=== PATIENT | male | born 1930 | race Caucasian/White ===

== ENCOUNTER 2016-03-17 09:05 | Outpatient (CLI) | payer MEDICARE ==
--- NOTE | 2016-03-17 16:31 | RAD ---
CHEST 2 VIEWS: Date: 03/17/16 FINDINGS: COPD is present as usual with flattening of the diaphragm. The lungs are clear. There is no sign of pneumonia, pleural effusion, or pneumothorax. Should there be a concern of rib fracture, dedicated r ib films around area obtained could be needed. The mediastinum appears normal. Degenerative changes are seen in the spine. IMPRESSION: COPD but no acute findings. POS: HOME
== END 2016-03-17 09:06 | disposition home or self-care (01) ==
LOC: BURRAD 09:05
PROVIDERS: ATTEND Family Medicine
DX: R07.89 Other chest pain (principal); J44.9 Chronic obstructive pulmonary disease, unspecified
CPT/HCPCS: 71020

== ENCOUNTER 2016-05-13 14:04 | Inpatient (IN) | payer MEDICARE ==
[2016-05-13] MEDS ORDERED: methylPREDNISolone Sod Succ/PF 125 MG/2 ML VIAL ONE (14:29)
[2016-05-13 15:04] LABS: ALT (SGPT) 45 U/L (0-55); AST (SGOT) 50 U/L (5-34); Albumin 4.1 g/dL (3.4-4.8); Alkaline Phosphatase 68 U/L (40-150); Anion Gap 14 mmol/L (10-20); BUN (Urea Nitrogen) 10 mg/dL (8.4-25.7); Bilirubin, Total 1.6 mg/dL (0.2-1.2); Calc. Creatinine Clearance 0 mL/min (70-130); Calcium 8.7 mg/dL (7.8-10.44); Carbon Dioxide 24 mmol/L (23-31); Chloride 97 mmol/L (98-107); Estimated GFR-MDRD Greater than 90; Glucose 106 mg/dL (83-110); Potassium 3.9 mmol/L (3.5-5.1); Protein, Total 7.1 g/dL (5.8-8.1); Sodium 131 mmol/L (136-145)
[2016-05-13 15:08] LABS: Actual Bicarbonate (HCO3v) 26 mEq/L (24-30); Base Excess 1.9 mEq/L (-2 - +2)
[2016-05-13 15:09] LABS: Hemoglobin (Hb) 14.2 g/dL (12.6-17.4)
[2016-05-13 15:14] LABS: Band 3 % (5-11); Hemoglobin 14.4 g/dL (14.0-18.0); Large Platelets SLIGHT; Lymphocytes 22 % (21-51); MDiff Complete? YES; Mean Corpuscular HGB CONC 33.7 g/dL (32.0-36.0); Mean Corpuscular Hemoglobin 28.9 pg (27.0-31.0); Mean Corpuscular Volume 85.8 fl (80.0-94.0); Mean Platelet Volume 7.7 fL (7.4-10.4); Monocytes 13 % (0-10); Neutrophil 57 % (42-75); Platelet Count 131 thou/uL (130-400); RBC Distribution Width 11.4 % (11.5-14.5); Reactive Lymphocytes 4 % (0-10); Red Blood Cell (RBC) Count 4.98 mill/uL (4.70-6.10); White Blood Cell (WBC) Count 4.9 thou/uL (4.8-10.8)
--- NOTE | 2016-05-13 18:37 | RAD ---
CHEST 2 VIEWS: Date: 05/13/16 Comparison is made with the prior study of 03/17/16. There is blunting of the right costophrenic angle which is new indicating some pleural fluid is pres ent. There is a little increased streaking in the right lower lobe, so I cannot exclude an early inf iltrate here. The left lung is relatively clear. COPD is suggested. The heart size is normal. The tr achea is midline. IMPRESSION: 1. COPD. 2. Small right pleural effusion and suggestion of early right lower lobe infiltrate. Correlate with clinical exam. CODE T. POS: HOME
[2016-05-13] MEDS ORDERED: Oseltamivir 75 MG CAP ONE (20:26)
[2016-05-13] MEDS: Mometasone/Formoterol 60 PUFF AER INH SCH (20:57)
[2016-05-13] MEDS: PROVENTIL INHALER 6.7 G (200 INHALATIONS) INH SCH (21:00)
[2016-05-13] MEDS ORDERED: CINNAMON BARK PO SCH (21:00)
[2016-05-13] MEDS: Oseltamivir 75 MG CAP PO SCH (21:02)
[2016-05-13] MEDS: Carvedilol 12.5 MG TAB PO SCH (21:02)
[2016-05-13] MEDS: Pregabalin 75 MG CAP PO SCH (21:02)
[2016-05-14] MEDS: PROVENTIL INHALER 6.7 G (200 INHALATIONS) INH SCH ×6 (00:17→19:14)
--- NOTE | 2016-05-14 02:28 | HP ---
DATE OF ADMISSION: 05/13/2016 CHIEF COMPLAINT: Dyspnea. HISTORY OF PRESENT ILLNESS: An 86-year-old male who presented to [facility] after 3-4 day course of worsening upper respiratory symptoms, generalized fatigue and poor appetite. A subsequent evaluation in the emergency department revealed, patient to be hypoxic on room air. He was supplied nebulized treatments with minimal improvement and insufficient to be able to return home. He is also physically deconditioned secondary to his ongoing symptoms. Evaluation for flu ended up being positive for flu A. The patient did not receive a full shot this season and does not routinely receive them stating he used to get the flu regardless of whether or not he obtained a flu shot. He does have a noted history of asthma for which he is on Breo and p.r.n. inhaler. It was decided to admit the patient in order to treat his viral URI along with supplementation of oxygen until he is able to sufficiently oxygenate well enough on room air to return home. PAST MEDICAL HISTORY: Includes hyperlipidemia, asthma, shingles, and hypertension. PAST SURGICAL HISTORY: 1. Prior cardiac stents in 2008 2. Tonsillectomy. 3. Prostate surgery on nose in 2011; left eye surgery in 2013; right eye surgery in 2013, oral surgery in 2014. SOCIAL HISTORY: He is a nonsmoker and lives alone. FAMILY HISTORY: Patient has a brother. No childrens, never been . ALLERGIES: He has no known drug allergies. CURRENT MEDICATIONS: Takes [place] 3 1000 mg daily, Crestor 20 mg daily, folic acid 150 mg as directed, resveratrol 250 mg as directed, quercetin 250 mg, cinnamon 350 mg 4 pills a day with a decrease by one pill a day every three days until it is 10 mg, CoQ10 250 mg capsule, aspirin 81 mg daily, niacin 500 mg p.o. daily, magnesium 500 mg p.o. daily, Flonase daily, vitamin B12 1000 mcg p.o. daily, albuterol inhaler 2 puffs q.4 hours p.r.n, Breo Ellipta 100/25 mcg for inhalation once a day, lisinopril 20 mg p.o. daily, ProAir 12.5 mg p.o. b.i.d., Lyrica 150 mg p.o. t.i.d.. Patient also takes a compound topical medications applied to his side of shingles b.i.d. REVIEW OF SYSTEMS: GENERAL: The patient is fatigue, denies fever. EAR, NOSE, AND THROAT: Denies sore throat, does have nasal drainage. CARDIOVASCULAR: Denies chest pain or palpitations. RESPIRATORY: Reports mild dyspnea. No active cough. GASTROINTESTINAL: Denies abdominal pain, nausea, vomiting, diarrhea, or constipation. Does have a decreased appetite. GENITOURINARY: Denies dysuria. MUSCULOSKELETAL: Denies joint swelling. DERMATOLOGIC: He does have a shingles, rash to his back. NEURO: Denies headache. LABORATORY DATA: White blood cell count 4.9, H and H is 14.4 and 42.7. Sodium is 131, potassium 3.9. GFR was greater than 90, glucose is 106. Chest x-ray official read is pending. PHYSICAL EXAMINATION: VITAL SIGNS: Temperature is 97.8, pulse of 67, respiratory rate is 20, oxygen is 96% on 2 liters, blood pressure is 211/93 and likely influence from his nebulized treatment. GENERAL: He is elderly alert and oriented to person, place, time, and situation , in no acute distress. FACE: No asymmetry. EYES: Conjunctivae are clear. Extraocular muscles are intact bilaterally with no discharge. HEAD, EYES, EARS, NOSE, AND THROAT: Moist mucous membranes. Otherwise, within normal limits. NECK: Supple, full range of motion. No lymphadenopathy, no meningeal signs. CARDIOVASCULAR: Regular rate, normal S1, S2, no murmurs. RESPIRATORY: No wheezing, but does sound tight. There is no crackles or rhonchi. GASTROINTESTINAL: Soft, nontender to palpation, no masses. EXTREMITIES: Warm and well perfused with no clubbing, cyanosis or edema. SKIN: He has a healing erythematous rash to the T4 distribution on the left side of the back. NEUROLOGIC: Nonfocal. He does have some generalized weakness. Cranial nerves II-XII intact. ASSESSMENT AND PLAN: 1. Hypoxia. We will supplement oxygen to keep saturation greater than 92% with plan to wean accordingly, DuoNeb q.6 hours scheduled. 2. Flu A positive, we will treat with oseltamivir 75 mg p.o. b.i.d. x5 days. 3. Shingles, we will continue Lyrica. The patient may bring his topical compound ointment to be applied to his rash b.i.d. 4. Asthma. We will continue home Breo and inhaler p.r.n. 5. Hyperlipidemia. We will continue on statin. 6. Hypertension. We will continue home BP medication and follow vital signs. 7. Physical deconditioning. We will seek PT, OT eval. 8. Prophylaxis. We will provide Lovenox prophylactic dose along with a PPI, with Protonix. MTDD
[2016-05-14] MEDS: Mometasone/Formoterol 60 PUFF AER INH SCH ×2 (06:24→19:09)
[2016-05-14] MEDS ORDERED: Non-Formulary Item 1 EACH (Fluticasone/Vilanterol [Breo Ellipta] 1 INH) IH SCH (09:00)
[2016-05-14] MEDS ORDERED: ALPHA LIPOIC ACID PO SCH (09:00)
[2016-05-14] MEDS: Pregabalin 75 MG CAP PO SCH ×3 (09:00→21:09)
[2016-05-14] MEDS ORDERED: RESVERATROL 250 MG PO SCH (09:00)
[2016-05-14] MEDS ORDERED: FLU VACC TS2016-17(65YR +) 0.5 ML SYRINGE IM ONE (09:00)
[2016-05-14] MEDS: Cyanocobalamin (Vitamin B-12) 1,000 MCG TAB PO SCH (09:39)
[2016-05-14] MEDS: Aspirin 81 mg Enteric Coated Tablet PO SCH (09:39)
[2016-05-14] MEDS: Carvedilol 12.5 MG TAB PO SCH ×2 (09:40→21:18)
[2016-05-14] MEDS: Multivit, Therapeutic 1 TAB PO SCH (09:40)
[2016-05-14] MEDS: Lisinopril 20 MG TAB PO SCH (09:40)
[2016-05-14] MEDS: Magnesium Oxide 400 MG TAB PO SCH (09:40)
[2016-05-14] MEDS ORDERED: Oseltamivir 75 MG CAP ONE ×2 (10:57→21:01)
[2016-05-14] MEDS: Oseltamivir 75 MG CAP PO SCH ×2 (11:02→21:12)
[2016-05-14] MEDS: Fish Oil 1,000 MG CAP PO SCH (11:02)
[2016-05-14] MEDS: Niacin 500 MG TAB PO SCH (11:02)
[2016-05-14] MEDS: Ubidecarenone 50 MG CAP PO SCH (11:05)
[2016-05-14 13:49] LABS: ALT (SGPT) 38 U/L (0-55); AST (SGOT) 32 U/L (5-34); Albumin 3.8 g/dL (3.4-4.8); Alkaline Phosphatase 61 U/L (40-150); Anion Gap 14 mmol/L (10-20); BUN (Urea Nitrogen) 14 mg/dL (8.4-25.7); Calc. Creatinine Clearance 71 mL/min (70-130); Carbon Dioxide 21 mmol/L (23-31); Chloride 102 mmol/L (98-107); Estimated GFR-MDRD Greater than 90; Globulin 2.7 g/dL (2.4-3.5); Glucose 173 mg/dL (83-110); Potassium 4.2 mmol/L (3.5-5.1); Protein, Total 6.5 g/dL (5.8-8.1); Sodium 133 mmol/L (136-145)
[2016-05-14 14:03] LABS: Band 2 % (5-11); Hemoglobin 14.2 g/dL (14.0-18.0); Lymphocytes 10 % (21-51); MDiff Complete? YES; Mean Corpuscular HGB CONC 33.8 g/dL (32.0-36.0); Mean Corpuscular Hemoglobin 29.1 pg (27.0-31.0); Mean Corpuscular Volume 85.8 fl (80.0-94.0); Mean Platelet Volume 7.7 fL (7.4-10.4); Monocytes 19 % (0-10); Neutrophil 69 % (42-75); Platelet Count 158 thou/uL (130-400); RBC Distribution Width 11.1 % (11.5-14.5); Red Blood Cell (RBC) Count 4.89 mill/uL (4.70-6.10); White Blood Cell (WBC) Count 6.3 thou/uL (4.8-10.8)
[2016-05-14] MEDS: ACYCLOVIR TOP SCH ×2 (14:49→21:12)
[2016-05-14] MEDS: LIDOCAINE TOP SCH ×2 (14:49→21:12)
[2016-05-14] MEDS: Vancomycin HCl 1 GM in Sodium Chloride 0.9% 250 ML 250 ML IVPB SCH (16:25)
[2016-05-14] MEDS: Enoxaparin Sodium 30 MG/0.3 ML SYRINGE SC SCH (19:06)
[2016-05-15] MEDS: Ventolin HFA Inhaler 60 PUFF INHALER INH PRN ×3 (00:15→12:41)
[2016-05-15] MEDS: PROVENTIL INHALER 6.7 G (200 INHALATIONS) INH SCH ×6 (00:17→18:09)
[2016-05-15] MEDS: Vancomycin HCl 1 GM in Sodium Chloride 0.9% 250 ML 250 ML IVPB SCH ×3 (03:24→16:38)
[2016-05-15 05:38] LABS: Anion Gap 13 mmol/L (10-20); BUN (Urea Nitrogen) 16 mg/dL (8.4-25.7); Calc. Creatinine Clearance 78 mL/min (70-130); Calcium 8.6 mg/dL (7.8-10.44); Carbon Dioxide 21 mmol/L (23-31); Chloride 103 mmol/L (98-107); Estimated GFR-MDRD Greater than 90; Glucose 108 mg/dL (83-110); Potassium 4.2 mmol/L (3.5-5.1); Sodium 133 mmol/L (136-145)
[2016-05-15 05:50] LABS: Hemoglobin 14.2 g/dL (14.0-18.0); Lymphocytes 19 % (21-51); MDiff Complete? YES; Mean Corpuscular HGB CONC 32.7 g/dL (32.0-36.0); Mean Corpuscular Hemoglobin 28.2 pg (27.0-31.0); Mean Corpuscular Volume 86.3 fl (80.0-94.0); Mean Platelet Volume 7.6 fL (7.4-10.4); Monocytes 16 % (0-10); Neutrophil 65 % (42-75); PLT Morphology Comment Appears Adequate; Platelet Count 150 thou/uL (130-400); RBC Distribution Width 11.2 % (11.5-14.5); RBC Morphology Normal; Red Blood Cell (RBC) Count 5.05 mill/uL (4.70-6.10); White Blood Cell (WBC) Count 8.2 thou/uL (4.8-10.8)
[2016-05-15] MEDS: Mometasone/Formoterol 60 PUFF AER INH SCH ×2 (06:16→18:11)
[2016-05-15] MEDS ORDERED: Iopamidol 370 76% 100 ML VIAL ONE (09:00)
[2016-05-15] MEDS ORDERED: Oseltamivir 75 MG CAP ONE ×2 (09:07→20:49)
[2016-05-15] MEDS: Floranex Packet PO SCH (09:23)
[2016-05-15] MEDS: Lisinopril 20 MG TAB PO SCH (09:24)
[2016-05-15] MEDS: Cyanocobalamin (Vitamin B-12) 1,000 MCG TAB PO SCH (09:24)
[2016-05-15] MEDS: Fish Oil 1,000 MG CAP PO SCH (09:24)
[2016-05-15] MEDS: Multivit, Therapeutic 1 TAB PO SCH (09:24)
[2016-05-15] MEDS: Magnesium Oxide 400 MG TAB PO SCH (09:25)
[2016-05-15] MEDS: Pregabalin 75 MG CAP PO SCH ×3 (09:26→21:09)
[2016-05-15] MEDS: Carvedilol 12.5 MG TAB PO SCH ×2 (09:27→21:08)
[2016-05-15] MEDS: Aspirin 81 mg Enteric Coated Tablet PO SCH (09:27)
[2016-05-15] MEDS: Oseltamivir 75 MG CAP PO SCH ×2 (09:28→21:08)
--- NOTE | 2016-05-15 09:46 | RAD ---
PA AND LATERAL VIEWS OF CHEST: Date: 05/15/16 HISTORY: Hypoxia. FINDINGS: Comparison made with exam of 05/13/16. The heart size is normal. Changes of COPD are again seen. Small right pleural effusion with mild rig ht lower lobe infiltrate versus atelectatic changes again seen. No pneumothoraces identified. There are degenerative changes in the spine. IMPRESSION: Stable exam. POS: [facility]
[2016-05-15] MEDS: LIDOCAINE TOP SCH ×3 (10:00→21:12)
[2016-05-15] MEDS: ACYCLOVIR TOP SCH ×3 (10:00→21:12)
[2016-05-15] MEDS: Niacin 500 MG TAB PO SCH (12:40)
[2016-05-15] MEDS: Ubidecarenone 50 MG CAP PO SCH (12:40)
--- NOTE | 2016-05-15 17:13 | CT ---
CT ANGIOGRAM CHEST: Date: 05-15-16 Comparison: None. History: Shortness of breath, assess for pulmonary embolism. Technique: Serial axial CT imaging is obtained at 3 mm intervals from thoracic inlet through lung b ases with IV contrast using a CT angiogram protocol. Coronal and oblique sagittal 3D reformatted im aging obtained. FINDINGS: There is no axillary, hilar, or mediastinal lymphadenopathy. Reflex of contrast media into the intr ahepatic veins suggest suboptimal cardiac output. Trace pleural fluid noted on the right. There is focal increased density within the inferior posterior right lower lobe which may signify scar, vol ume loss, or aspiration. No significant paracardial or mediastinal fluid. Incompletely assessed coronary arterial calcificat ion is noted. There is atherosclerotic calcification of the aortic arch. There is no evidence for pulmonary embolism. There is mild bronchial wall thickening within the segmental bronchi distally involving both lower l obes. The distal most segmental and subsegmental lower lobe bronchi are opacified suggesting mucous plugging and/or aspiration change. No pneumothorax is seen. There is no acute osseous abnormality noted. IMPRESSION: 1. No CT angiographic evidence of pulmonary embolism. 2. Multiple segmental and subsegmental bronchi supplying both lower lobes demonstrate wall thickeni ng and distal opacification suggesting mucous plugging/aspiration. 3. Trace pleural fluid on the right. There is a focal area of partial consolidation involving the inferior most aspect of the right lower lobe with internal high density which may signify infectious pneumonitis or aspiration. POS: [facility]
[2016-05-15] MEDS: Enoxaparin Sodium 30 MG/0.3 ML SYRINGE SC SCH (18:06)
[2016-05-15 19:12] VITALS: TEMP 97.2
[2016-05-16] MEDS: PROVENTIL INHALER 6.7 G (200 INHALATIONS) INH SCH ×5 (00:16→15:30)
[2016-05-16] MEDS ORDERED: Zolpidem Tartrate 5 MG TAB PO PRN (00:31)
[2016-05-16] MEDS: Mometasone/Formoterol 60 PUFF AER INH SCH (05:57)
[2016-05-16 07:52] VITALS: BMI 21.4
[2016-05-16] MEDS: Niacin 500 MG TAB PO SCH (08:59)
[2016-05-16] MEDS: Pregabalin 75 MG CAP PO SCH ×2 (09:41→15:12)
[2016-05-16] MEDS: Fish Oil 1,000 MG CAP PO SCH (09:41)
[2016-05-16] MEDS: Carvedilol 12.5 MG TAB PO SCH (09:42)
[2016-05-16] MEDS: Multivit, Therapeutic 1 TAB PO SCH (09:43)
[2016-05-16] MEDS: Magnesium Oxide 400 MG TAB PO SCH (09:43)
[2016-05-16] MEDS: Cyanocobalamin (Vitamin B-12) 1,000 MCG TAB PO SCH (09:43)
[2016-05-16 09:44] VITALS: BP 120/66
[2016-05-16] MEDS: ACYCLOVIR TOP SCH ×2 (09:44→15:31)
[2016-05-16] MEDS: LIDOCAINE TOP SCH ×2 (09:44→15:31)
[2016-05-16] MEDS: Lisinopril 20 MG TAB PO SCH (09:44)
[2016-05-16] MEDS: Floranex Packet PO SCH (09:47)
[2016-05-16] MEDS: Ubidecarenone 50 MG CAP PO SCH (09:53)
[2016-05-16] MEDS: Aspirin 81 mg Enteric Coated Tablet PO SCH (10:21)
[2016-05-16] MEDS ORDERED: Oseltamivir 75 MG CAP ONE (10:23)
[2016-05-16] MEDS: Oseltamivir 75 MG CAP PO SCH (10:29)
[2016-05-16] MEDS: Ventolin HFA Inhaler 60 PUFF INHALER INH PRN (15:12)
== END 2016-05-16 16:02 | disposition swing bed (61) | DRG 194 ==
LOC: BURERS 14:04 → BURMED 16:45 → OBSVTOIN 16:45 → INTOOBSV 05-14 13:05
PROVIDERS: ADMIT Family Medicine; ATTEND Family Medicine
DX: J11.00 Influenza due to unidentified influenza virus with unspecified type of pneumonia (principal); J90 Pleural effusion, not elsewhere classified; E87.1 Hypo-osmolality and hyponatremia; B02.9 Zoster without complications; J98.11 Atelectasis; J18.9 Pneumonia, unspecified organism; R09.02 Hypoxemia; I10 Essential (primary) hypertension; I25.10 Atherosclerotic heart disease of native coronary artery without angina pectoris; Z95.5 Presence of coronary angioplasty implant and graft; E78.5 Hyperlipidemia, unspecified; J45.909 Unspecified asthma, uncomplicated; G47.00 Insomnia, unspecified; R53.1 Weakness
CPT/HCPCS: 36415; 71020; 71275; 80048; 80053; 82805; 85025; 87040; 94640; 94664; 96374; A4216; J1650; J1956; J2930; J3370; J7050; J7620

== ENCOUNTER 2016-05-16 16:02 | Inpatient (IN) | payer MEDICARE ==
[~2016-05-16 16:02] MED LIST: Pregabalin 75 MG CAP ONE
[2016-05-16 18:37] VITALS: BMI 21.2
[2016-05-16] MEDS ORDERED: Ventolin HFA Inhaler 60 PUFF INHALER INH PRN (19:11)
[2016-05-16] MEDS ORDERED: Oseltamivir 75 MG CAP PO SCH (21:00)
[2016-05-16] MEDS: Zolpidem Tartrate 5 MG TAB PO PRN (21:11)
[2016-05-16] MEDS: Carvedilol 12.5 MG TAB PO SCH (21:12)
[2016-05-16] MEDS: Pregabalin 75 MG CAP PO SCH (21:12)
[2016-05-16] MEDS: ACYCLOVIR TOP SCH (21:13)
[2016-05-16] MEDS: LIDOCAINE TOP SCH (21:13)
[2016-05-16] MEDS ORDERED: Oseltamivir 75 MG CAP ONE (21:20)
[2016-05-16] MEDS: Oseltamivir 75 MG CAP PO SCH (23:26)
[2016-05-17] MEDS: Mometasone/Formoterol 60 PUFF AER INH SCH ×2 (06:16→21:36)
[2016-05-17] MEDS ORDERED: FLU VACC TS2016-17(65YR +) 0.5 ML SYRINGE IM ONE (09:00)
[2016-05-17] MEDS: Aspirin 81 mg Enteric Coated Tablet PO SCH (10:23)
[2016-05-17] MEDS: Oseltamivir 75 MG CAP PO SCH ×2 (10:23→21:39)
[2016-05-17] MEDS: Floranex Packet PO SCH (10:23)
[2016-05-17] MEDS: Carvedilol 12.5 MG TAB PO SCH ×2 (10:24→21:38)
[2016-05-17] MEDS: Lisinopril 20 MG TAB PO SCH (10:24)
[2016-05-17] MEDS: Pregabalin 75 MG CAP PO SCH ×3 (10:24→21:40)
[2016-05-17] MEDS: Magnesium Oxide 400 MG TAB PO SCH (10:25)
[2016-05-17] MEDS: Multivit, Therapeutic 1 TAB PO SCH (10:25)
[2016-05-17] MEDS: Cyanocobalamin (Vitamin B-12) 1,000 MCG TAB PO SCH (10:26)
[2016-05-17] MEDS: Niacin 500 MG TAB PO SCH (10:26)
[2016-05-17] MEDS: Fish Oil 1,000 MG CAP PO SCH (10:26)
[2016-05-17] MEDS: LIDOCAINE TOP SCH ×3 (10:27→21:51)
[2016-05-17] MEDS: ACYCLOVIR TOP SCH ×3 (10:27→21:51)
[2016-05-17] MEDS: Ubidecarenone 50 MG CAP PO SCH (10:28)
[2016-05-17] MEDS: Enoxaparin Sodium 30 MG/0.3 ML SYRINGE SC SCH (18:51)
[2016-05-17] MEDS ORDERED: Oseltamivir 75 MG CAP ONE (21:31)
[2016-05-17] MEDS: Zolpidem Tartrate 5 MG TAB PO PRN (21:39)
[2016-05-18] MEDS: Mometasone/Formoterol 60 PUFF AER INH SCH ×2 (05:58→19:01)
[2016-05-18] MEDS ORDERED: Dextrose 5 %-0.45 % NaCl 1,000 ML IV SCH (07:45)
[2016-05-18 09:02] LABS: ALT (SGPT) 35 U/L (0-55); AST (SGOT) 26 U/L (5-34); Albumin 3.7 g/dL (3.4-4.8); Alkaline Phosphatase 68 U/L (40-150); Anion Gap 14 mmol/L (10-20); BUN (Urea Nitrogen) 13 mg/dL (8.4-25.7); Bilirubin, Total 1.7 mg/dL (0.2-1.2); Calc. Creatinine Clearance 78 mL/min (70-130); Calcium 8.6 mg/dL (7.8-10.44); Carbon Dioxide 21 mmol/L (23-31); Chloride 90 mmol/L (98-107); Estimated GFR-MDRD Greater than 90; Globulin 2.7 g/dL (2.4-3.5); Glucose 105 mg/dL (83-110); Potassium 3.6 mmol/L (3.5-5.1); Protein, Total 6.4 g/dL (5.8-8.1); Sodium 121 mmol/L (136-145)
[2016-05-18] MEDS ORDERED: Oseltamivir 75 MG CAP ONE ×2 (09:09→22:10)
[2016-05-18] MEDS: Floranex Packet PO SCH (09:27)
[2016-05-18] MEDS: Oseltamivir 75 MG CAP PO SCH ×2 (09:28→22:15)
[2016-05-18] MEDS: Multivit, Therapeutic 1 TAB PO SCH (09:28)
[2016-05-18] MEDS: Aspirin 81 mg Enteric Coated Tablet PO SCH (09:29)
[2016-05-18] MEDS: Fish Oil 1,000 MG CAP PO SCH (09:29)
[2016-05-18] MEDS: Cyanocobalamin (Vitamin B-12) 1,000 MCG TAB PO SCH (09:29)
[2016-05-18] MEDS: Carvedilol 12.5 MG TAB PO SCH ×2 (09:30→22:15)
[2016-05-18] MEDS: Magnesium Oxide 400 MG TAB PO SCH (09:31)
[2016-05-18] MEDS: Lisinopril 20 MG TAB PO SCH (09:31)
[2016-05-18] MEDS: Pregabalin 75 MG CAP PO SCH ×3 (09:33→22:15)
[2016-05-18] MEDS: ACYCLOVIR TOP SCH ×3 (09:34→22:24)
[2016-05-18] MEDS: LIDOCAINE TOP SCH ×3 (09:34→22:24)
[2016-05-18] MEDS: Niacin 500 MG TAB PO SCH (09:35)
[2016-05-18] MEDS: Ubidecarenone 50 MG CAP PO SCH (09:35)
--- NOTE | 2016-05-18 09:53 | RAD ---
PA AND LATERAL CHEST: History: Shortness of breath, COPD. Comparison: 05-15-16 FINDINGS: Heart size and mediastinum are within normal limits. There is blunting to the posterior sulci sofy tible with small effusions versus pleural thickening. No confluent infiltrative process is seen. M inimal linear parenchymal change seen in the right base. IMPRESSION: Minimal blunting to the posterior sulci compatible with small effusion versus pleural thickening wit h some linear change in the right base probably on the basis of atelectasis. POS: [facility]
[2016-05-18 09:58] LABS: #Lymphocytes 1.1 thou/uL (1.20-3.40); #Monocytes 1.6 thou/uL (0.11-0.59); #Neutrophils 10.2 thou/uL (1.40-6.50); %Basophils 0.3 % (0.0-1.0); %Eosinophils 0.2 % (0.0-10.0); %Lymphocytes 8.4 % (21.0-51.0); %Monocytes 12.4 % (0.0-10.0); %Neutrophils 78.7 % (42.0-75.0); Hemoglobin 14.7 g/dL (14.0-18.0); Mean Corpuscular HGB CONC 34.7 g/dL (32.0-36.0); Mean Corpuscular Hemoglobin 28.9 pg (27.0-31.0); Mean Corpuscular Volume 83.1 fl (80.0-94.0); Mean Platelet Volume 7.9 fL (7.4-10.4); Platelet Count 194 thou/uL (130-400); RBC Distribution Width 10.5 % (11.5-14.5); Red Blood Cell (RBC) Count 5.09 mill/uL (4.70-6.10); White Blood Cell (WBC) Count 12.9 thou/uL (4.8-10.8)
[2016-05-18] MEDS: Sodium Chloride 0.9% 1,000 ML IV SCH (12:37)
[2016-05-18] MEDS: Enoxaparin Sodium 30 MG/0.3 ML SYRINGE SC SCH (19:00)
[2016-05-18] MEDS: Zolpidem Tartrate 5 MG TAB PO PRN (22:14)
[2016-05-19] MEDS: Sodium Chloride 0.9% 1,000 ML IV SCH ×2 (02:25→16:17)
[2016-05-19 06:12] LABS: #Monocytes 1.6 thou/uL (0.11-0.59); #Neutrophils 8.3 thou/uL (1.40-6.50); %Basophils 0.4 % (0.0-1.0); %Eosinophils 0.2 % (0.0-10.0); %Lymphocytes 9.1 % (21.0-51.0); %Monocytes 14.6 % (0.0-10.0); %Neutrophils 75.8 % (42.0-75.0); Hemoglobin 13.9 g/dL (14.0-18.0); Mean Corpuscular HGB CONC 35.1 g/dL (32.0-36.0); Mean Corpuscular Hemoglobin 29.2 pg (27.0-31.0); Mean Corpuscular Volume 83.3 fl (80.0-94.0); Mean Platelet Volume 7.2 fL (7.4-10.4); Platelet Count 186 thou/uL (130-400); RBC Distribution Width 10.7 % (11.5-14.5); Red Blood Cell (RBC) Count 4.77 mill/uL (4.70-6.10); White Blood Cell (WBC) Count 10.9 thou/uL (4.8-10.8)
[2016-05-19] MEDS: Mometasone/Formoterol 60 PUFF AER INH SCH ×2 (06:22→17:43)
[2016-05-19 06:25] LABS: ALT (SGPT) 26 U/L (0-55); AST (SGOT) 16 U/L (5-34); Albumin 3.4 g/dL (3.4-4.8); Alkaline Phosphatase 60 U/L (40-150); Anion Gap 13 mmol/L (10-20); BUN (Urea Nitrogen) 13 mg/dL (8.4-25.7); Bilirubin, Total 1.3 mg/dL (0.2-1.2); Calc. Creatinine Clearance 78 mL/min (70-130); Calcium 8.3 mg/dL (7.8-10.44); Carbon Dioxide 21 mmol/L (23-31); Chloride 97 mmol/L (98-107); Estimated GFR-MDRD Greater than 90; Globulin 2.4 g/dL (2.4-3.5); Glucose 87 mg/dL (83-110); Potassium 3.8 mmol/L (3.5-5.1); Protein, Total 5.8 g/dL (5.8-8.1); Sodium 127 mmol/L (136-145)
[2016-05-19] MEDS: Floranex Packet PO SCH (09:02)
[2016-05-19] MEDS: Pregabalin 75 MG CAP PO SCH ×3 (09:02→22:09)
[2016-05-19] MEDS: Carvedilol 12.5 MG TAB PO SCH ×2 (09:04→22:09)
[2016-05-19] MEDS: Aspirin 81 mg Enteric Coated Tablet PO SCH (09:04)
[2016-05-19] MEDS: Lisinopril 20 MG TAB PO SCH (09:04)
[2016-05-19] MEDS: LIDOCAINE TOP SCH ×3 (09:05→22:16)
[2016-05-19] MEDS: ACYCLOVIR TOP SCH ×3 (09:05→22:16)
[2016-05-19] MEDS: Fish Oil 1,000 MG CAP PO SCH (09:07)
[2016-05-19] MEDS: Niacin 500 MG TAB PO SCH (09:07)
[2016-05-19] MEDS: Multivit, Therapeutic 1 TAB PO SCH (09:07)
[2016-05-19] MEDS: Magnesium Oxide 400 MG TAB PO SCH (09:07)
[2016-05-19] MEDS: Cyanocobalamin (Vitamin B-12) 1,000 MCG TAB PO SCH (09:08)
[2016-05-19] MEDS: Ubidecarenone 50 MG CAP PO SCH (09:09)
[2016-05-19] MEDS: Enoxaparin Sodium 30 MG/0.3 ML SYRINGE SC SCH (17:45)
[2016-05-19] MEDS: Zolpidem Tartrate 5 MG TAB PO PRN (22:14)
[2016-05-20] MEDS: Sodium Chloride 0.9% 1,000 ML IV SCH (05:06)
[2016-05-20 06:43] LABS: #Basophils 0.1 thou/uL (0.0-0.2); #Eosinphils 0.1 thou/uL (0.0-0.7); #Monocytes 1.5 thou/uL (0.11-0.59); #Neutrophils 9.2 thou/uL (1.40-6.50); %Basophils 0.9 % (0.0-1.0); %Eosinophils 0.5 % (0.0-10.0); %Lymphocytes 8.3 % (21.0-51.0); %Monocytes 12.8 % (0.0-10.0); %Neutrophils 77.6 % (42.0-75.0); Mean Corpuscular HGB CONC 34.1 g/dL (32.0-36.0); Mean Corpuscular Hemoglobin 29.1 pg (27.0-31.0); Mean Corpuscular Volume 85.5 fl (80.0-94.0); Mean Platelet Volume 7.1 fL (7.4-10.4); Platelet Count 185 thou/uL (130-400); RBC Distribution Width 11.3 % (11.5-14.5); Red Blood Cell (RBC) Count 4.46 mill/uL (4.70-6.10); White Blood Cell (WBC) Count 11.9 thou/uL (4.8-10.8)
[2016-05-20] MEDS: Mometasone/Formoterol 60 PUFF AER INH SCH ×2 (06:45→19:21)
[2016-05-20 06:51] LABS: ALT (SGPT) 25 U/L (0-55); AST (SGOT) 22 U/L (5-34); Albumin 3.2 g/dL (3.4-4.8); Alkaline Phosphatase 56 U/L (40-150); Anion Gap 12 mmol/L (10-20); BUN (Urea Nitrogen) 12 mg/dL (8.4-25.7); Bilirubin, Total 0.8 mg/dL (0.2-1.2); Calc. Creatinine Clearance 79 mL/min (70-130); Calcium 8.2 mg/dL (7.8-10.44); Carbon Dioxide 17 mmol/L (23-31); Chloride 106 mmol/L (98-107); Estimated GFR-MDRD Greater than 90; Globulin 2.5 g/dL (2.4-3.5); Glucose 90 mg/dL (83-110); Potassium 4.1 mmol/L (3.5-5.1); Protein, Total 5.7 g/dL (5.8-8.1); Sodium 131 mmol/L (136-145)
[2016-05-20] MEDS ORDERED: Azithromycin 250 MG TAB PO SCH ×2 (09:00)
[2016-05-20] MEDS: Floranex Packet PO SCH (09:07)
[2016-05-20] MEDS: Aspirin 81 mg Enteric Coated Tablet PO SCH (09:07)
[2016-05-20] MEDS: Carvedilol 12.5 MG TAB PO SCH ×2 (09:08→20:52)
[2016-05-20] MEDS: Cyanocobalamin (Vitamin B-12) 1,000 MCG TAB PO SCH (09:09)
[2016-05-20] MEDS: Lisinopril 20 MG TAB PO SCH (09:09)
[2016-05-20] MEDS: Fish Oil 1,000 MG CAP PO SCH (09:09)
[2016-05-20] MEDS: Niacin 500 MG TAB PO SCH (09:10)
[2016-05-20] MEDS: Multivit, Therapeutic 1 TAB PO SCH (09:10)
[2016-05-20] MEDS: Magnesium Oxide 400 MG TAB PO SCH (09:10)
[2016-05-20] MEDS: Pregabalin 75 MG CAP PO SCH ×3 (09:11→20:51)
[2016-05-20] MEDS: Ubidecarenone 50 MG CAP PO SCH (09:13)
[2016-05-20] MEDS: LIDOCAINE TOP SCH ×3 (12:36→20:53)
[2016-05-20] MEDS: ACYCLOVIR TOP SCH ×3 (12:36→20:53)
[2016-05-20] MEDS: Enoxaparin Sodium 30 MG/0.3 ML SYRINGE SC SCH (18:23)
[2016-05-20] MEDS: Zolpidem Tartrate 5 MG TAB PO SCH (20:52)
[2016-05-21] MEDS: Mometasone/Formoterol 60 PUFF AER INH SCH ×2 (06:18→18:17)
[2016-05-21] MEDS: Floranex Packet PO SCH (10:07)
[2016-05-21] MEDS: Lisinopril 20 MG TAB PO SCH (10:08)
[2016-05-21] MEDS: Aspirin 81 mg Enteric Coated Tablet PO SCH (10:08)
[2016-05-21] MEDS: Carvedilol 12.5 MG TAB PO SCH ×2 (10:08→20:36)
[2016-05-21] MEDS: Cyanocobalamin (Vitamin B-12) 1,000 MCG TAB PO SCH (10:10)
[2016-05-21] MEDS: Azithromycin 250 MG TAB PO SCH (10:10)
[2016-05-21] MEDS: Magnesium Oxide 400 MG TAB PO SCH (10:12)
[2016-05-21] MEDS: Fish Oil 1,000 MG CAP PO SCH (10:12)
[2016-05-21] MEDS: Niacin 500 MG TAB PO SCH (10:13)
[2016-05-21] MEDS: Multivit, Therapeutic 1 TAB PO SCH (10:13)
[2016-05-21] MEDS: Ubidecarenone 50 MG CAP PO SCH (10:16)
[2016-05-21] MEDS: Pregabalin 75 MG CAP PO SCH ×3 (10:16→20:34)
[2016-05-21] MEDS: LIDOCAINE TOP SCH ×3 (10:17→20:33)
[2016-05-21] MEDS: ACYCLOVIR TOP SCH ×3 (10:17→20:33)
[2016-05-21] MEDS: Milk Of Magnesia 30 ML UDCUP PO PRN (13:43)
[2016-05-21] MEDS: Enoxaparin Sodium 30 MG/0.3 ML SYRINGE SC SCH (18:03)
[2016-05-21] MEDS ORDERED: Bisacodyl 10 MG SUPP PR PRN (19:54)
[2016-05-21] MEDS: Zolpidem Tartrate 5 MG TAB PO SCH (20:36)
[2016-05-22] MEDS: Mometasone/Formoterol 60 PUFF AER INH SCH ×2 (06:31→18:22)
[2016-05-22] MEDS: Azithromycin 250 MG TAB PO SCH (09:36)
[2016-05-22] MEDS: LIDOCAINE TOP SCH ×3 (09:37→21:02)
[2016-05-22] MEDS: ACYCLOVIR TOP SCH ×3 (09:37→21:02)
[2016-05-22] MEDS: Carvedilol 12.5 MG TAB PO SCH ×2 (09:39→21:01)
[2016-05-22] MEDS: Aspirin 81 mg Enteric Coated Tablet PO SCH (09:39)
[2016-05-22] MEDS: Lisinopril 20 MG TAB PO SCH (09:39)
[2016-05-22] MEDS: Pregabalin 75 MG CAP PO SCH ×3 (09:39→21:00)
[2016-05-22] MEDS: Milk Of Magnesia 30 ML UDCUP PO PRN (09:40)
[2016-05-22] MEDS: Ubidecarenone 50 MG CAP PO SCH (09:49)
[2016-05-22] MEDS: Multivit, Therapeutic 1 TAB PO SCH (09:49)
[2016-05-22] MEDS: Floranex Packet PO SCH (09:49)
[2016-05-22] MEDS: Magnesium Oxide 400 MG TAB PO SCH (09:49)
[2016-05-22] MEDS ORDERED: Milk Of Magnesia 30 ML UDCUP PO SCH (14:30)
[2016-05-22] MEDS: Enoxaparin Sodium 30 MG/0.3 ML SYRINGE SC SCH (17:19)
[2016-05-22] MEDS: Zolpidem Tartrate 5 MG TAB PO SCH (21:01)
[2016-05-23] MEDS: Mometasone/Formoterol 60 PUFF AER INH SCH ×2 (05:59→18:21)
[2016-05-23 06:41] LABS: #Basophils 0.1 thou/uL (0.0-0.2); #Eosinphils 0.2 thou/uL (0.0-0.7); #Lymphocytes 1.4 thou/uL (1.20-3.40); #Monocytes 0.9 thou/uL (0.11-0.59); #Neutrophils 5.3 thou/uL (1.40-6.50); %Basophils 0.7 % (0.0-1.0); %Eosinophils 2.1 % (0.0-10.0); %Lymphocytes 17.6 % (21.0-51.0); %Monocytes 11.9 % (0.0-10.0); %Neutrophils 67.7 % (42.0-75.0); Hemoglobin 13.7 g/dL (14.0-18.0); Mean Corpuscular HGB CONC 33.9 g/dL (32.0-36.0); Mean Corpuscular Hemoglobin 29.4 pg (27.0-31.0); Mean Corpuscular Volume 86.8 fl (80.0-94.0); Mean Platelet Volume 6.7 fL (7.4-10.4); Platelet Count 305 thou/uL (130-400); RBC Distribution Width 11.5 % (11.5-14.5); Red Blood Cell (RBC) Count 4.64 mill/uL (4.70-6.10); White Blood Cell (WBC) Count 7.8 thou/uL (4.8-10.8)
[2016-05-23 06:47] LABS: ALT (SGPT) 39 U/L (0-55); AST (SGOT) 26 U/L (5-34); Albumin 3.8 g/dL (3.4-4.8); Alkaline Phosphatase 67 U/L (40-150); Anion Gap 14 mmol/L (10-20); BUN (Urea Nitrogen) 11 mg/dL (8.4-25.7); Bilirubin, Total 1.1 mg/dL (0.2-1.2); Calc. Creatinine Clearance 73 mL/min (70-130); Calcium 9.4 mg/dL (7.8-10.44); Carbon Dioxide 28 mmol/L (23-31); Chloride 98 mmol/L (98-107); Estimated GFR-MDRD Greater than 90; Globulin 2.9 g/dL (2.4-3.5); Glucose 95 mg/dL (83-110); Potassium 4.5 mmol/L (3.5-5.1); Protein, Total 6.7 g/dL (5.8-8.1); Sodium 135 mmol/L (136-145)
--- NOTE | 2016-05-23 06:51 | RAD ---
CHEST 2 VIEWS: Date: 05/23/16 Comparison made with the 05/18/16 study. FINDINGS: The mild blunting of the posterior costophrenic sulci has improved, indicating that it was probably due to some small amounts of pleural fluid. Blunting is still present, but improved. There is also a little bit of linear streaking in the lung bases, more suggestive of atelectasis than true infiltra te. No new infiltrates are seen. There are no lobar consolidations. There does not appear to be any vascular congestion in the lungs. There is some pleural thickening in the lung apices, particularly on the left side. IMPRESSION: 1. No acute or adverse change since 05/18/16. 2. Slight blunting of posterior sulci improved. POS: HOME
[2016-05-23] MEDS ORDERED: traMADol HCl 50 MG TAB PO PRN (07:15)
[2016-05-23] MEDS: Ubidecarenone 50 MG CAP PO SCH (09:00)
[2016-05-23] MEDS: Floranex Packet PO SCH (09:55)
[2016-05-23] MEDS: Azithromycin 250 MG TAB PO SCH (09:55)
[2016-05-23] MEDS: Aspirin 81 mg Enteric Coated Tablet PO SCH (09:55)
[2016-05-23] MEDS: Lisinopril 20 MG TAB PO SCH (09:55)
[2016-05-23] MEDS: Carvedilol 12.5 MG TAB PO SCH ×2 (09:55→20:37)
[2016-05-23] MEDS: Pregabalin 75 MG CAP PO SCH ×3 (09:56→20:37)
[2016-05-23] MEDS: Multivit, Therapeutic 1 TAB PO SCH (09:58)
[2016-05-23] MEDS: LIDOCAINE TOP SCH ×3 (09:58→20:41)
[2016-05-23] MEDS: ACYCLOVIR TOP SCH ×3 (09:58→20:41)
[2016-05-23] MEDS: Magnesium Oxide 400 MG TAB PO SCH (09:58)
[2016-05-23] MEDS: Enoxaparin Sodium 30 MG/0.3 ML SYRINGE SC SCH (18:17)
[2016-05-23] MEDS: Zolpidem Tartrate 5 MG TAB PO SCH (20:39)
[2016-05-24] MEDS: Mometasone/Formoterol 60 PUFF AER INH SCH ×2 (06:02→17:30)
[2016-05-24] MEDS: Ubidecarenone 50 MG CAP PO SCH (09:00)
[2016-05-24] MEDS ORDERED: Magnesium Oxide 400 MG TAB PO SCH (09:00)
[2016-05-24] MEDS: Floranex Packet PO SCH (09:21)
[2016-05-24] MEDS: Lisinopril 20 MG TAB PO SCH (09:21)
[2016-05-24] MEDS: Pregabalin 75 MG CAP PO SCH ×3 (09:22→20:43)
[2016-05-24] MEDS: Azithromycin 250 MG TAB PO SCH (09:22)
[2016-05-24] MEDS: Carvedilol 12.5 MG TAB PO SCH ×2 (09:22→20:44)
[2016-05-24] MEDS: Aspirin 81 mg Enteric Coated Tablet PO SCH (09:22)
[2016-05-24] MEDS: ACYCLOVIR TOP SCH ×3 (09:23→20:45)
[2016-05-24] MEDS: LIDOCAINE TOP SCH ×3 (09:23→20:45)
[2016-05-24] MEDS: Enoxaparin Sodium 30 MG/0.3 ML SYRINGE SC SCH (17:31)
[2016-05-24] MEDS: Zolpidem Tartrate 5 MG TAB PO SCH (20:44)
[2016-05-25] MEDS: Mometasone/Formoterol 60 PUFF AER INH SCH ×2 (06:12→18:33)
[2016-05-25] MEDS: Floranex Packet PO SCH (08:40)
[2016-05-25] MEDS: Aspirin 81 mg Enteric Coated Tablet PO SCH (08:41)
[2016-05-25] MEDS: Lisinopril 20 MG TAB PO SCH (08:41)
[2016-05-25] MEDS: Carvedilol 12.5 MG TAB PO SCH ×2 (08:42→20:53)
[2016-05-25] MEDS: Pregabalin 75 MG CAP PO SCH ×3 (08:43→20:53)
[2016-05-25] MEDS: Ubidecarenone 50 MG CAP PO SCH (08:53)
[2016-05-25] MEDS: LIDOCAINE TOP SCH ×3 (08:54→20:54)
[2016-05-25] MEDS: ACYCLOVIR TOP SCH ×3 (08:54→20:54)
[2016-05-25] MEDS ORDERED: Acetaminophen 325 MG TAB PO PRN (16:48)
[2016-05-25] MEDS: Enoxaparin Sodium 30 MG/0.3 ML SYRINGE SC SCH (17:38)
[2016-05-25] MEDS: Zolpidem Tartrate 5 MG TAB PO SCH (20:53)
[2016-05-26 06:14] VITALS: TEMP 97.7
[2016-05-26] MEDS: Mometasone/Formoterol 60 PUFF AER INH SCH (06:15)
[2016-05-26] MEDS: Lisinopril 20 MG TAB PO SCH (08:17)
[2016-05-26] MEDS: Pregabalin 75 MG CAP PO SCH (08:18)
[2016-05-26] MEDS: Carvedilol 12.5 MG TAB PO SCH (08:18)
[2016-05-26] MEDS: Aspirin 81 mg Enteric Coated Tablet PO SCH (08:18)
[2016-05-26] MEDS: Floranex Packet PO SCH (08:19)
[2016-05-26] MEDS: LIDOCAINE TOP SCH (08:20)
[2016-05-26] MEDS: Ubidecarenone 50 MG CAP PO SCH (08:20)
[2016-05-26] MEDS: ACYCLOVIR TOP SCH (08:20)
[2016-05-26 08:22] VITALS: BP 138/58
--- NOTE | 2016-05-26 12:40 | DIS ---
DATE OF DISCHARGE: 05/26/2016 ADMISSION DIAGNOSES: 1. Hypoxia. 2. Flu A positive. 3. Shingles. 4. Asthma. SECONDARY DIAGNOSES: 1. Hyperlipidemia. 2. Hypertension. 3. Physical deconditioning. 4. Hypovolemic hyponatremia, resolved. 5. Dehydration, resolved. 6. Infectious Pneumonitis, resolved PROCEDURES: Chest x-ray on 05/13/2016 showing COPD and a small right pleural effusion and suggestion of early right lower lobe infiltrate. 05/15/16 - Chest x-ray showed stable exam. 05/18/2016 - X-ray showed minimal blunting to the posterior sulci compatible with small effusion versus pleural thickening with some linear changes in the right base, probably on the basis of atelectasis. 05/23/2016 - Chest x-ray showed no adverse change, slight blunting of posterior sulci improved. 05/15/2016 - CTA of the chest showed no evidence of pulmonary embolism, multiple segmental and subsegmental bronchi suppling both lower lobes demonstrate wall thickening and distal opacification suggesting mucous plugging/ aspiration. Trace pleural fluid on the right sulci area of partial consolidation involving the inferior most aspect of the right lower lobe with internal high density which may signify infectious pneumonitis or aspiration. HOSPITAL COURSE: An 86-year-old male who presented to [facility] after a 3-4 day history of worsening upper respiratory symptoms who was found to be flu A positive and requiring supplemental oxygen due to hypoxic state. He was admitted for treatment of this issue along with plan for weaning of the O2 gradually. The patient's respiratory status improved; however, his intake declined causing him to develop a hypovolemic hyponatremia, and thus IV fluids were initiated, and gradually the sodium levels corrected improving the patient's status. The patient developed notable physical deconditioning requiring evaluation and treatment with PT, OT. Secondary to his findings on CT of chest, infectious pneumonitis versus aspiration, a speech evaluation was ordered with swallow study which he effectively passed; he completed courses of Levaquin and Azithromycin. As the patient's oral intake improved, his intravenous fluids were discontinued, and he continued to progress both with his intake and physical conditioning. He notably had elevated blood pressure during his stay, thus his lisinopril was increased from 20 mg p.o. daily to 40 mg p.o. daily. His blood pressure remained stable thereafter. The patient was able to achieve goals set by PT, OT, enabling him to transition home; he has elected to receive further PT, OT as an outpatient rather than via home health. He is currently hemodynamically stable, is sufficient ability to perform home ADLs and will be discharged at this time. DISPOSITION: To be discharged home today and follow up with myself in the clinic next week and will begin outpatient PT and OT next Monday. DISCHARGE MEDICATIONS: Include acetaminophen 650 mg p.o. q.6 hours p.r.n., aspirin 81 mg p.o. daily, carvedilol 12.5 mg p.o. b.i.d., DuoNeb q.4 hours p.r.n., lisinopril 40 mg p.o. daily, Lyrica 75 mg p.o. t.i.d., Crestor 20 mg p.o. at bedtime, Coenzyme Q10 200 mg p.o. daily, Ventolin 2 puffs q.4 hours p.r.n., Ambien 10 mg p.o. at bedtime, MiraLax p.r.n., Breo 1 puff daily. MTDD
== END 2016-05-26 10:40 | disposition home or self-care (01) | DRG 190 ==
LOC: BURMED 16:02
PROVIDERS: ADMIT Family Medicine; ATTEND Family Medicine
DX: J44.0 Chronic obstructive pulmonary disease with (acute) lower respiratory infection (principal); J10.00 Influenza due to other identified influenza virus with unspecified type of pneumonia; E86.0 Dehydration; J44.9 Chronic obstructive pulmonary disease, unspecified; B02.9 Zoster without complications; E87.1 Hypo-osmolality and hyponatremia; R09.02 Hypoxemia; J45.909 Unspecified asthma, uncomplicated; E78.5 Hyperlipidemia, unspecified; I10 Essential (primary) hypertension; K59.00 Constipation, unspecified; G47.00 Insomnia, unspecified
CPT/HCPCS: 36415; 71020; 80053; 85025; 94664; A4216; G8978-GP-CK; G8979-GP-CI; G8987-GO-CL; G8988-GO-CI; G8996-GN-CI; G8997-GN-CI; J1650; J1956; J7620

== ENCOUNTER 2016-08-15 06:30 | Outpatient (CLI) | payer MEDICARE ==
[2016-08-15 07:20] LABS: Cardiac Risk 2.9 (Less than 4.5)
== END 2016-08-15 06:31 | disposition home or self-care (01) ==
LOC: BURLAB 06:30
PROVIDERS: ATTEND Nurse Practitioner
DX: E78.2 Mixed hyperlipidemia (principal); Z79.899 Other long term (current) drug therapy
CPT/HCPCS: 36415; 80061

== ENCOUNTER 2020-07-18 17:06 | Emergency (ER) | payer MEDICARE ==
[2020-07-18] MEDS ORDERED: cloNIDine 0.1 MG TAB ONE ×2 (17:24→19:46)
[2020-07-18] MEDS ORDERED: Nitroglycerin 2% Ointment 1 INCH/1 GM Packet ONE (17:51)
[2020-07-18 18:14] LABS: ALT (SGPT) 17 U/L (8-55); AST (SGOT) 22 U/L (5-34); Albumin 4.5 g/dL (3.4-4.8); Alkaline Phosphatase 71 U/L (40-110); Anion Gap 18 mmol/L (10-20); BUN (Urea Nitrogen) 11 mg/dL (8.4-25.7); Bilirubin, Total 1.2 mg/dL (0.2-1.2); CK (CPK) 160 U/L (30-200); Calc. Creatinine Clearance 0 mL/min (70-130); Calcium 9.6 mg/dL (7.8-10.44); Carbon Dioxide 23 mmol/L (23-31); Chloride 105 mmol/L (98-107); Glucose 108 mg/dL (83-110); Potassium 4.5 mmol/L (3.5-5.1); Protein, Total 7.5 g/dL (5.8-8.1); Sodium 141 mmol/L (136-145)
[2020-07-18 18:35] LABS: #Eosinphils 0.2 thou/uL (0.0-0.7); #Lymphocytes 0.8 thou/uL (1.20-3.40); #Monocytes 0.6 thou/uL (0.11-0.59); #Neutrophils 4.8 thou/uL (1.40-6.50); %Basophils 0.6 % (0.0-1.0); %Eosinophils 2.8 % (0.0-10.0); %Lymphocytes 12.4 % (21.0-51.0); %Monocytes 9.4 % (0.0-10.0); %Neutrophils 74.7 % (42.0-75.0); Hemoglobin 16.8 g/dL (14.0-18.0); Mean Corpuscular HGB CONC 33.4 g/dL (32.0-36.0); Mean Corpuscular Hemoglobin 29.2 pg (27.0-31.0); Mean Corpuscular Volume 87.4 fL (78.0-98.0); Mean Platelet Volume 8.5 fL (7.4-10.4); Platelet Count 116 thou/uL (130-400); Red Blood Cell (RBC) Count 5.76 mill/uL (4.70-6.10); White Blood Cell (WBC) Count 6.5 thou/uL (4.8-10.8)
[2020-07-18 19:15] LABS: Platelet Morphology Comment Appears Decreased
== END 2020-07-18 19:58 | disposition short-term general hospital (02) ==
LOC: BURERS 17:06
DX: I10 Essential (primary) hypertension (principal); I25.10 Atherosclerotic heart disease of native coronary artery without angina pectoris; Z79.899 Other long term (current) drug therapy; Z79.82 Long term (current) use of aspirin
CPT/HCPCS: 36415; 80053; 82550; 84484; 85025; 93005; 94760

== ENCOUNTER 2020-09-29 12:27 | Inpatient (IN) | payer MEDICARE ==
[2020-09-29 12:52] LABS: #Basophils 0.1 thou/uL (0.0-0.2); #Eosinphils 0.1 thou/uL (0.0-0.7); #Lymphocytes 0.9 thou/uL (1.20-3.40); #Monocytes 0.8 thou/uL (0.11-0.59); #Neutrophils 4.1 thou/uL (1.40-6.50); %Basophils 0.9 % (0.0-1.0); %Eosinophils 1.3 % (0.0-10.0); %Lymphocytes 15.8 % (21.0-51.0); %Monocytes 13.3 % (0.0-10.0); %Neutrophils 68.8 % (42.0-75.0); Hemoglobin 16.1 g/dL (14.0-18.0); Mean Corpuscular HGB CONC 34.6 g/dL (32.0-36.0); Mean Corpuscular Volume 86.7 fL (78.0-98.0); Mean Platelet Volume 8.4 fL (7.4-10.4); Platelet Count 182 thou/uL (130-400); Red Blood Cell (RBC) Count 5.37 mill/uL (4.70-6.10); White Blood Cell (WBC) Count 5.9 thou/uL (4.8-10.8)
[2020-09-29] MEDS ORDERED: Nitroglycerin 0.4 MG TAB 1 EACH ONE (13:06)
[2020-09-29 13:08] LABS: ALT (SGPT) 23 U/L (8-55); AST (SGOT) 23 U/L (5-34); Albumin 4.3 g/dL (3.4-4.8); Alkaline Phosphatase 67 U/L (40-110); Anion Gap 15 mmol/L (10-20); BUN (Urea Nitrogen) 10 mg/dL (8.4-25.7); Bilirubin, Total 1.6 mg/dL (0.2-1.2); Calc. Creatinine Clearance 0 mL/min (70-130); Calcium 9.1 mg/dL (7.8-10.44); Carbon Dioxide 23 mmol/L (23-31); Chloride 103 mmol/L (98-107); Globulin 2.5 g/dL (2.4-3.5); Glucose 105 mg/dL (83-110); Potassium 4.2 mmol/L (3.5-5.1); Protein, Total 6.8 g/dL (5.8-8.1); Sodium 137 mmol/L (136-145)
[2020-09-29] MEDS ORDERED: Morphine 4 MG/ML VIAL ONE (13:43)
[2020-09-29] MEDS ORDERED: Isosorbide Mononitrate 20 MG TAB PO SCH (14:30)
[2020-09-29 15:08] LABS: SARS-CoV-2 NAA Rapid Test Not Detected (NotDetected)
[2020-09-29] MEDS ORDERED: Naloxone HCl 0.4 mg/ml Vial ONE (15:10)
[2020-09-29] MEDS ORDERED: Nitroglycerin 0.4 MG TAB (25 Tab Bottle) SL PRN (19:51)
[2020-09-29] MEDS ORDERED: ALPRAZolam 0.5 MG TAB PO PRN (19:51)
[2020-09-29] MEDS ORDERED: Fluticasone Propionate Nasal Spray 16 gm Bottle NASAL PRN (19:51)
[2020-09-29] MEDS ORDERED: cloNIDine 0.1 MG TAB PO PRN (19:58)
[2020-09-29] MEDS ORDERED: Albuterol Sulfate 2.5 mg/3 ml Neb NEB PRN (20:14)
[2020-09-29] MEDS ORDERED: Zolpidem Tartrate 5 MG TAB PO PRN (20:15)
[2020-09-29] MEDS ORDERED: Mometasone/Formoterol 60 PUFF AER INH PRN (20:27)
[2020-09-29] MEDS: Rosuvastatin 10 MG TAB PO SCH (20:52)
[2020-09-29] MEDS: Carvedilol 6.25 MG TAB PO SCH (20:52)
[2020-09-29] MEDS: Pregabalin 75 MG CAP PO SCH (20:55)
[2020-09-30] MEDS: Carvedilol 6.25 MG TAB PO SCH ×2 (08:01→20:32)
[2020-09-30] MEDS: Pregabalin 75 MG CAP PO SCH ×3 (08:02→20:30)
[2020-09-30] MEDS ORDERED: Carvedilol 6.25 MG TAB PO SCH (09:00)
[2020-09-30] MEDS ORDERED: Amlodipine 5 MG TAB PO SCH ×2 (09:00)
[2020-09-30] MEDS ORDERED: Isosorbide Mononitrate 20 MG TAB PO SCH (09:00)
[2020-09-30] MEDS: Cyanocobalamin (Vitamin B-12) 1,000 MCG TAB PO SCH (09:16)
[2020-09-30] MEDS: Cholecalciferol (Vitamin D3) 5,000 UNITS CAPSULE PO SCH (09:16)
[2020-09-30] MEDS: Aspirin 81 mg Enteric Coated Tablet PO SCH (09:17)
[2020-09-30] MEDS: Acetaminophen 325 MG TAB PO PRN (09:23)
[2020-09-30] MEDS: Loratadine 10 MG TAB PO PRN (09:25)
[2020-09-30] MEDS: Ubidecarenone 50 MG CAP PO SCH (12:29)
[2020-09-30 12:58] VITALS: BMI 21.7
[2020-09-30] MEDS: Enoxaparin Sodium 40 MG/0.4 ML SYRINGE SC SCH (20:29)
[2020-09-30] MEDS: Rosuvastatin 10 MG TAB PO SCH (20:30)
[2020-10-01] MEDS ORDERED: Carvedilol 6.25 MG TAB PO SCH (06:35)
[2020-10-01] MEDS: Pregabalin 75 MG CAP PO SCH ×3 (08:18→21:20)
[2020-10-01] MEDS: Acetaminophen 325 MG TAB PO PRN (08:18)
[2020-10-01] MEDS: Amlodipine 5 MG TAB PO SCH (08:20)
[2020-10-01] MEDS: Carvedilol 25 MG TAB PO SCH ×2 (08:21→21:19)
[2020-10-01] MEDS: Loratadine 10 MG TAB PO PRN (09:05)
[2020-10-01] MEDS: Cholecalciferol (Vitamin D3) 5,000 UNITS CAPSULE PO SCH (09:05)
[2020-10-01] MEDS: Cyanocobalamin (Vitamin B-12) 1,000 MCG TAB PO SCH (09:05)
[2020-10-01] MEDS: Aspirin 81 mg Enteric Coated Tablet PO SCH (09:06)
[2020-10-01] MEDS: Ubidecarenone 50 MG CAP PO SCH (09:09)
[2020-10-01] MEDS: Rosuvastatin 10 MG TAB PO SCH (21:19)
[2020-10-01] MEDS: Enoxaparin Sodium 40 MG/0.4 ML SYRINGE SC SCH (21:20)
[2020-10-02 05:55] VITALS: TEMP 96
[2020-10-02] MEDS: Pregabalin 75 MG CAP PO SCH ×2 (08:33→14:51)
[2020-10-02] MEDS: Cyanocobalamin (Vitamin B-12) 1,000 MCG TAB PO SCH (08:36)
[2020-10-02] MEDS: Amlodipine 5 MG TAB PO SCH (08:37)
[2020-10-02] MEDS: Aspirin 81 mg Enteric Coated Tablet PO SCH (08:41)
[2020-10-02] MEDS: Cholecalciferol (Vitamin D3) 5,000 UNITS CAPSULE PO SCH (08:41)
[2020-10-02] MEDS: Carvedilol 25 MG TAB PO SCH (08:41)
[2020-10-02 08:42] VITALS: BP 130/60
[2020-10-02] MEDS: Ubidecarenone 50 MG CAP PO SCH ×2 (08:42→09:56)
== END 2020-10-02 16:50 | disposition swing bed (61) | DRG 948 ==
LOC: BURERS 12:27 → BURMED 14:24 → UNDOADMIN 14:24
PROVIDERS: ADMIT Family Medicine; ATTEND Family Medicine
DX: R53.1 Weakness (principal); B02.29 Other postherpetic nervous system involvement; I10 Essential (primary) hypertension; J45.909 Unspecified asthma, uncomplicated; E78.5 Hyperlipidemia, unspecified; C44.90 Unspecified malignant neoplasm of skin, unspecified; I25.10 Atherosclerotic heart disease of native coronary artery without angina pectoris; F41.9 Anxiety disorder, unspecified; G47.00 Insomnia, unspecified; Z20.822 Contact with and (suspected) exposure to COVID-19; Z90.89 Acquired absence of other organs; Z98.890 Other specified postprocedural states; Z90.49 Acquired absence of other specified parts of digestive tract; Z79.82 Long term (current) use of aspirin; Z79.51 Long term (current) use of inhaled steroids; Z79.899 Other long term (current) drug therapy
CPT/HCPCS: 0240U; 36416; 71045; 80053; 83690; 84484; 85025; 93005; 96374; 96375; J1650; J2270; J2310

== ENCOUNTER 2020-10-02 16:50 | Inpatient (IN) | payer MEDICARE ==
[2020-10-02 19:56] VITALS: BMI 19.8
[2020-10-02] MEDS ORDERED: ALPRAZolam 0.5 MG TAB PO PRN (20:15)
[2020-10-02] MEDS ORDERED: cloNIDine 0.1 MG TAB PO PRN (20:18)
[2020-10-02] MEDS ORDERED: Fluticasone Propionate Nasal Spray 16 gm Bottle NASAL PRN (20:20)
[2020-10-02] MEDS ORDERED: Loratadine 10 MG TAB PO PRN (20:22)
[2020-10-02] MEDS ORDERED: Nitroglycerin 0.4 MG TAB (25 Tab Bottle) SL PRN (20:23)
[2020-10-02] MEDS ORDERED: Albuterol Sulfate 2.5 mg/3 ml Neb NEB PRN (20:31)
[2020-10-02] MEDS ORDERED: Zolpidem Tartrate 5 MG TAB PO PRN (20:31)
[2020-10-02] MEDS: Rosuvastatin 10 MG TAB PO SCH (20:54)
[2020-10-02] MEDS: Enoxaparin Sodium 40 MG/0.4 ML SYRINGE SC SCH (20:55)
[2020-10-02] MEDS: Pregabalin 75 MG CAP PO SCH (20:55)
[2020-10-02] MEDS: Carvedilol 25 MG TAB PO SCH (20:55)
[2020-10-02] MEDS: Mometasone/Formoterol 60 PUFF AER INH SCH (20:57)
[2020-10-03 06:30] LABS: Hemoglobin 15.5 g/dL (14.0-18.0); Platelet Count 176 thou/uL (130-400)
[2020-10-03] MEDS: Carvedilol 25 MG TAB PO SCH ×2 (09:21→20:10)
[2020-10-03] MEDS: Cholecalciferol 1,000 UNITS (25 MCG) TAB PO SCH (09:21)
[2020-10-03] MEDS: Amlodipine 10 MG TAB PO SCH (09:21)
[2020-10-03] MEDS: Aspirin 81 mg Enteric Coated Tablet PO SCH (09:22)
[2020-10-03] MEDS: Cyanocobalamin (Vitamin B-12) 1,000 MCG TAB PO SCH (09:22)
[2020-10-03] MEDS: Pregabalin 75 MG CAP PO SCH ×3 (09:23→20:10)
[2020-10-03] MEDS: Ubidecarenone 50 MG CAP PO SCH (09:23)
[2020-10-03] MEDS: Mometasone/Formoterol 60 PUFF AER INH SCH ×2 (09:26→20:26)
[2020-10-03] MEDS: PYRIDOXINE PO SCH (16:32)
[2020-10-03] MEDS: Rosuvastatin 10 MG TAB PO SCH (20:10)
[2020-10-03] MEDS: Enoxaparin Sodium 40 MG/0.4 ML SYRINGE SC SCH (20:11)
[2020-10-04] MEDS: Ubidecarenone 50 MG CAP PO SCH (07:56)
[2020-10-04] MEDS: Aspirin 81 mg Enteric Coated Tablet PO SCH (08:01)
[2020-10-04] MEDS: Cyanocobalamin (Vitamin B-12) 1,000 MCG TAB PO SCH (08:01)
[2020-10-04] MEDS: Cholecalciferol 1,000 UNITS (25 MCG) TAB PO SCH (08:03)
[2020-10-04] MEDS: Pregabalin 75 MG CAP PO SCH ×3 (08:05→21:16)
[2020-10-04] MEDS: Carvedilol 25 MG TAB PO SCH ×2 (08:05→21:16)
[2020-10-04] MEDS: Amlodipine 10 MG TAB PO SCH (08:06)
[2020-10-04] MEDS: Mometasone/Formoterol 60 PUFF AER INH SCH ×2 (08:11→21:20)
[2020-10-04] MEDS: PYRIDOXINE PO SCH (08:13)
[2020-10-04] MEDS: Rosuvastatin 10 MG TAB PO SCH (21:16)
[2020-10-04] MEDS: Enoxaparin Sodium 40 MG/0.4 ML SYRINGE SC SCH (21:17)
[2020-10-05] MEDS: Cyanocobalamin (Vitamin B-12) 1,000 MCG TAB PO SCH (09:05)
[2020-10-05] MEDS: Ubidecarenone 50 MG CAP PO SCH (09:22)
[2020-10-05] MEDS: Cholecalciferol 1,000 UNITS (25 MCG) TAB PO SCH (09:23)
[2020-10-05] MEDS: Pregabalin 75 MG CAP PO SCH ×3 (09:25→20:42)
[2020-10-05] MEDS: Carvedilol 25 MG TAB PO SCH ×2 (09:25→20:43)
[2020-10-05] MEDS: Aspirin 81 mg Enteric Coated Tablet PO SCH (09:25)
[2020-10-05] MEDS: Amlodipine 10 MG TAB PO SCH (09:25)
[2020-10-05] MEDS: PYRIDOXINE PO SCH (09:29)
[2020-10-05] MEDS: Mometasone/Formoterol 60 PUFF AER INH SCH ×2 (12:25→22:19)
[2020-10-05] MEDS: Enoxaparin Sodium 40 MG/0.4 ML SYRINGE SC SCH (20:40)
[2020-10-05] MEDS: Rosuvastatin 10 MG TAB PO SCH (20:42)
[2020-10-06 06:53] LABS: Hemoglobin 14.7 g/dL (14.0-18.0); Platelet Count 175 thou/uL (130-400)
[2020-10-06 07:23] LABS: Calc. Creatinine Clearance 63 mL/min (70-130)
[2020-10-06] MEDS: Carvedilol 25 MG TAB PO SCH ×2 (08:42→21:49)
[2020-10-06] MEDS: Amlodipine 10 MG TAB PO SCH (08:42)
[2020-10-06] MEDS: Pregabalin 75 MG CAP PO SCH ×3 (08:42→21:48)
[2020-10-06] MEDS: Aspirin 81 mg Enteric Coated Tablet PO SCH (08:42)
[2020-10-06] MEDS: Ubidecarenone 50 MG CAP PO SCH ×2 (13:03→13:08)
[2020-10-06] MEDS: Cyanocobalamin (Vitamin B-12) 1,000 MCG TAB PO SCH (13:05)
[2020-10-06] MEDS: Cholecalciferol 1,000 UNITS (25 MCG) TAB PO SCH (13:06)
[2020-10-06] MEDS: Mometasone/Formoterol 60 PUFF AER INH SCH ×2 (13:11→21:50)
[2020-10-06] MEDS: Acetaminophen 325 MG TAB PO PRN (15:35)
[2020-10-06] MEDS ORDERED: traMADol HCl 50 MG TAB PO SCH (19:30)
[2020-10-06] MEDS: Rosuvastatin 10 MG TAB PO SCH (21:44)
[2020-10-06] MEDS: Enoxaparin Sodium 40 MG/0.4 ML SYRINGE SC SCH (21:49)
[2020-10-07] MEDS: traMADol HCl 50 MG TAB PO PRN ×4 (01:38→22:57)
[2020-10-07] MEDS: Acetaminophen 325 MG TAB PO PRN (04:59)
[2020-10-07] MEDS: Cyanocobalamin (Vitamin B-12) 1,000 MCG TAB PO SCH (08:00)
[2020-10-07] MEDS: Aspirin 81 mg Enteric Coated Tablet PO SCH (08:00)
[2020-10-07] MEDS: Pregabalin 75 MG CAP PO SCH ×3 (08:03→21:51)
[2020-10-07] MEDS: Carvedilol 25 MG TAB PO SCH ×2 (08:04→21:51)
[2020-10-07] MEDS: Amlodipine 10 MG TAB PO SCH (08:04)
[2020-10-07] MEDS: Cholecalciferol (Vitamin D3) 5,000 UNITS CAPSULE PO SCH (08:04)
[2020-10-07] MEDS: Mometasone/Formoterol 60 PUFF AER INH SCH ×2 (08:05→21:52)
[2020-10-07] MEDS: Ubidecarenone 50 MG CAP PO SCH (08:05)
[2020-10-07] MEDS: Rosuvastatin 10 MG TAB PO SCH (21:51)
[2020-10-07] MEDS: Enoxaparin Sodium 40 MG/0.4 ML SYRINGE SC SCH (21:52)
[2020-10-08] MEDS: Pregabalin 75 MG CAP PO SCH ×3 (08:02→20:50)
[2020-10-08] MEDS: Cyanocobalamin (Vitamin B-12) 1,000 MCG TAB PO SCH (08:03)
[2020-10-08] MEDS: Ubidecarenone 50 MG CAP PO SCH (08:05)
[2020-10-08] MEDS: Amlodipine 10 MG TAB PO SCH (08:05)
[2020-10-08] MEDS: Aspirin 81 mg Enteric Coated Tablet PO SCH (08:06)
[2020-10-08] MEDS: Carvedilol 25 MG TAB PO SCH ×2 (08:06→20:52)
[2020-10-08] MEDS: Mometasone/Formoterol 60 PUFF AER INH SCH ×2 (08:07→20:52)
[2020-10-08] MEDS: Cholecalciferol (Vitamin D3) 5,000 UNITS CAPSULE PO SCH (08:15)
[2020-10-08] MEDS: Rosuvastatin 10 MG TAB PO SCH (20:50)
[2020-10-08] MEDS: Enoxaparin Sodium 40 MG/0.4 ML SYRINGE SC SCH (20:51)
[2020-10-09 05:32] LABS: Hemoglobin 14.2 g/dL (14.0-18.0); Platelet Count 163 thou/uL (130-400)
[2020-10-09 05:43] LABS: Calc. Creatinine Clearance 67 mL/min (70-130)
[2020-10-09] MEDS: Ubidecarenone 50 MG CAP PO SCH (08:43)
[2020-10-09] MEDS: Pregabalin 75 MG CAP PO SCH ×3 (08:44→20:13)
[2020-10-09] MEDS: Aspirin 81 mg Enteric Coated Tablet PO SCH (08:45)
[2020-10-09] MEDS: Cyanocobalamin (Vitamin B-12) 1,000 MCG TAB PO SCH (08:45)
[2020-10-09] MEDS: Amlodipine 10 MG TAB PO SCH (08:46)
[2020-10-09] MEDS: Cholecalciferol (Vitamin D3) 5,000 UNITS CAPSULE PO SCH (08:46)
[2020-10-09] MEDS: Carvedilol 25 MG TAB PO SCH ×2 (08:46→20:14)
[2020-10-09] MEDS: Mometasone/Formoterol 60 PUFF AER INH SCH ×2 (08:47→20:16)
[2020-10-09] MEDS: Acetaminophen 325 MG TAB PO PRN (12:23)
[2020-10-09] MEDS: Rosuvastatin 10 MG TAB PO SCH (20:13)
[2020-10-09] MEDS: Enoxaparin Sodium 40 MG/0.4 ML SYRINGE SC SCH (20:14)
[2020-10-10] MEDS: Acetaminophen 325 MG TAB PO PRN ×2 (05:15→15:08)
[2020-10-10] MEDS: Ubidecarenone 50 MG CAP PO SCH (08:06)
[2020-10-10] MEDS: Pregabalin 75 MG CAP PO SCH ×3 (08:07→20:06)
[2020-10-10] MEDS: Cholecalciferol (Vitamin D3) 5,000 UNITS CAPSULE PO SCH (08:08)
[2020-10-10] MEDS: Cyanocobalamin (Vitamin B-12) 1,000 MCG TAB PO SCH (08:08)
[2020-10-10] MEDS: Aspirin 81 mg Enteric Coated Tablet PO SCH (08:08)
[2020-10-10] MEDS: Amlodipine 10 MG TAB PO SCH (08:09)
[2020-10-10] MEDS: Carvedilol 25 MG TAB PO SCH ×2 (08:09→20:05)
[2020-10-10] MEDS: Mometasone/Formoterol 60 PUFF AER INH SCH ×2 (09:19→20:10)
[2020-10-10] MEDS: Rosuvastatin 10 MG TAB PO SCH (20:06)
[2020-10-10] MEDS: Enoxaparin Sodium 40 MG/0.4 ML SYRINGE SC SCH (20:06)
[2020-10-11] MEDS: Pregabalin 75 MG CAP PO SCH ×3 (08:21→20:24)
[2020-10-11] MEDS: Cyanocobalamin (Vitamin B-12) 1,000 MCG TAB PO SCH (08:21)
[2020-10-11] MEDS: Ubidecarenone 50 MG CAP PO SCH (08:22)
[2020-10-11] MEDS: Cholecalciferol (Vitamin D3) 5,000 UNITS CAPSULE PO SCH (08:22)
[2020-10-11] MEDS: Amlodipine 10 MG TAB PO SCH (08:22)
[2020-10-11] MEDS: Carvedilol 25 MG TAB PO SCH ×2 (08:22→20:25)
[2020-10-11] MEDS: Aspirin 81 mg Enteric Coated Tablet PO SCH (08:23)
[2020-10-11] MEDS: Acetaminophen 325 MG TAB PO PRN ×3 (08:32→20:27)
[2020-10-11] MEDS: Mometasone/Formoterol 60 PUFF AER INH SCH ×2 (08:33→20:29)
[2020-10-11] MEDS: Rosuvastatin 10 MG TAB PO SCH (20:24)
[2020-10-11] MEDS: Enoxaparin Sodium 40 MG/0.4 ML SYRINGE SC SCH (20:25)
[2020-10-12] MEDS ORDERED: Bacitracin 1 PK ONE (05:16)
[2020-10-12 05:27] LABS: Hemoglobin 14.7 g/dL (14.0-18.0); Platelet Count 198 thou/uL (130-400)
[2020-10-12 05:44] LABS: Calc. Creatinine Clearance 59 mL/min (70-130)
[2020-10-12] MEDS: Amlodipine 10 MG TAB PO SCH (08:08)
[2020-10-12] MEDS: Aspirin 81 mg Enteric Coated Tablet PO SCH (08:08)
[2020-10-12] MEDS: Pregabalin 75 MG CAP PO SCH (08:09)
[2020-10-12] MEDS: Carvedilol 25 MG TAB PO SCH (08:09)
[2020-10-12] MEDS: Cyanocobalamin (Vitamin B-12) 1,000 MCG TAB PO SCH (08:17)
[2020-10-12] MEDS: Mometasone/Formoterol 60 PUFF AER INH SCH (08:17)
[2020-10-12] MEDS: Cholecalciferol (Vitamin D3) 5,000 UNITS CAPSULE PO SCH (08:17)
[2020-10-12 10:46] VITALS: BP 130/71; TEMP 97.8
== END 2020-10-12 08:50 | disposition home or self-care (01) | DRG 948 ==
LOC: BURMED 16:50
PROVIDERS: ADMIT Family Medicine; ATTEND Family Medicine
DX: R53.1 Weakness (principal); B02.29 Other postherpetic nervous system involvement; I10 Essential (primary) hypertension; R55 Syncope and collapse; E78.5 Hyperlipidemia, unspecified; J45.909 Unspecified asthma, uncomplicated; C44.90 Unspecified malignant neoplasm of skin, unspecified; I25.10 Atherosclerotic heart disease of native coronary artery without angina pectoris; F41.9 Anxiety disorder, unspecified; G47.00 Insomnia, unspecified; Z90.89 Acquired absence of other organs; Z90.49 Acquired absence of other specified parts of digestive tract; Z98.890 Other specified postprocedural states; Z79.82 Long term (current) use of aspirin; Z79.899 Other long term (current) drug therapy
CPT/HCPCS: 36415; 36416; 82565; 85014; 85018; 85049; 94664; J1650

== ENCOUNTER 2020-11-28 10:01 | Emergency (ER) | payer MEDICARE ==
[2020-11-28] MEDS ORDERED: Gabapentin 300 MG CAP PO SCH (10:45)
[2020-11-28 10:49] LABS: #Basophils 0.1 thou/uL (0.0-0.2); #Lymphocytes 0.8 thou/uL (1.20-3.40); #Monocytes 0.7 thou/uL (0.11-0.59); #Neutrophils 6.6 thou/uL (1.40-6.50); %Basophils 0.8 % (0.0-1.0); %Eosinophils 0.4 % (0.0-10.0); %Lymphocytes 9.9 % (21.0-51.0); %Neutrophils 80.8 % (42.0-75.0); Hemoglobin 16.6 g/dL (14.0-18.0); Mean Corpuscular HGB CONC 33.3 g/dL (32.0-36.0); Mean Corpuscular Hemoglobin 29.6 pg (27.0-31.0); Mean Platelet Volume 9.5 fL (7.4-10.4); Platelet Count 136 thou/uL (130-400); RBC Distribution Width 11.6 % (11.5-14.5); Red Blood Cell (RBC) Count 5.59 mill/uL (4.70-6.10); White Blood Cell (WBC) Count 8.1 thou/uL (4.8-10.8)
[2020-11-28 11:21] LABS: ALT (SGPT) 22 U/L (8-55); AST (SGOT) 21 U/L (5-34); Albumin 4.4 g/dL (3.4-4.8); Alkaline Phosphatase 66 U/L (40-110); Anion Gap 18 mmol/L (10-20); BUN (Urea Nitrogen) 10 mg/dL (8.4-25.7); Bilirubin, Total 1.6 mg/dL (0.2-1.2); Calc. Creatinine Clearance 0 mL/min (70-130); Calcium 9.8 mg/dL (7.8-10.44); Carbon Dioxide 18 mmol/L (23-31); Chloride 105 mmol/L (98-107); Glucose 118 mg/dL (83-110); Potassium 3.8 mmol/L (3.5-5.1); Protein, Total 7.4 g/dL (5.8-8.1); Sodium 137 mmol/L (136-145)
[2020-11-28] MEDS ORDERED: Ketorolac Tromethamine 30 MG/ML VIAL ONE (11:49)
== END 2020-11-28 12:53 | disposition home or self-care (01) ==
LOC: BURERS 10:01
DX: B02.9 Zoster without complications (principal); I10 Essential (primary) hypertension; Z86.79 Personal history of other diseases of the circulatory system; Z79.82 Long term (current) use of aspirin; Z79.899 Other long term (current) drug therapy
CPT/HCPCS: 71045; 80053; 83880; 84484; 85025; 93005; 94760; 96374; J1885

== ENCOUNTER 2020-11-30 10:08 | Emergency (ER) | payer MEDICARE ==
[~2020-11-30 10:08] MED LIST changes: +Lidocaine 5% Patch TD SCH; -Pregabalin 75 MG CAP ONE
[2020-11-30 10:57] LABS: #Lymphocytes 0.8 thou/uL (1.20-3.40); #Neutrophils 7.9 thou/uL (1.40-6.50); %Basophils 0.4 % (0.0-1.0); %Eosinophils 0.1 % (0.0-10.0); %Lymphocytes 8.1 % (21.0-51.0); %Monocytes 10.4 % (0.0-10.0); Hemoglobin 17.3 g/dL (14.0-18.0); Mean Corpuscular HGB CONC 34.8 g/dL (32.0-36.0); Mean Corpuscular Hemoglobin 30.2 pg (27.0-31.0); Mean Corpuscular Volume 86.5 fL (78.0-98.0); Mean Platelet Volume 7.5 fL (7.4-10.4); Platelet Count 239 thou/uL (130-400); RBC Distribution Width 11.3 % (11.5-14.5); Red Blood Cell (RBC) Count 5.73 mill/uL (4.70-6.10); White Blood Cell (WBC) Count 9.8 thou/uL (4.8-10.8)
[2020-11-30 11:00] LABS: CK (CPK) 287 U/L (30-200); CRP (Inflammatory) Less than 0.50 mg/dL (= or < 0.5)
[2020-11-30 11:02] LABS: ALT (SGPT) 28 U/L (8-55); AST (SGOT) 40 U/L (5-34); Albumin 4.4 g/dL (3.4-4.8); Alkaline Phosphatase 79 U/L (40-110); Anion Gap 17 mmol/L (10-20); BUN (Urea Nitrogen) 12 mg/dL (8.4-25.7); Bilirubin, Total 1.9 mg/dL (0.2-1.2); Calc. Creatinine Clearance 0 mL/min (70-130); Calcium 9.4 mg/dL (7.8-10.44); Carbon Dioxide 20 mmol/L (23-31); Chloride 104 mmol/L (98-107); Globulin 3.1 g/dL (2.4-3.5); Glucose 116 mg/dL (83-110); Potassium 4.2 mmol/L (3.5-5.1); Protein, Total 7.5 g/dL (5.8-8.1); Sodium 137 mmol/L (136-145)
[2020-11-30] MEDS ORDERED: HYDROcodone/Acetaminophen 5/325 mg Tablet ONE ×2 (11:28→15:06)
[2020-11-30 11:55] LABS: Bilirubin Negative (Negative); Blood, Urine Trace (Negative); Clarity Clear (Clear); Glucose, Urine (Dipstick) Negative (Negative); Ketone, Urine 40 mg/dL (Negative); Leukocyte Negative (Negative); Nitrite Negative (Negative); Protein, Urine (Dipstick) Negative (Neg-Trace)
[2020-11-30 12:00] LABS: Bacteria/HPF Rare-Few HPF (None Seen); RBC/HPF 0-3 HPF (0-3); Squamous Epithelial 0-3 HPF (0-3); WBC/HPF 0-3 HPF (0-3)
[2020-11-30 14:30] LABS: SARS-CoV-2 NAA Rapid Test Not Detected (NotDetected)
[2020-11-30] MEDS ORDERED: Transdermal Patch Removal TOP SCH (21:00)
== END 2020-11-30 16:09 ==
LOC: BURERS 10:08
DX: R53.1 Weakness (principal); R42 Dizziness and giddiness; R53.81 Other malaise; R21 Rash and other nonspecific skin eruption; Z20.822 Contact with and (suspected) exposure to COVID-19; I25.10 Atherosclerotic heart disease of native coronary artery without angina pectoris; I10 Essential (primary) hypertension
CPT/HCPCS: 71045; 80053; 81003; 81015; 82550; 83605; 84484; 85025; 86140; 93005; U0002

== ENCOUNTER 2020-12-09 05:51 | Outpatient (CLI) | payer MEDICARE ==
[2020-12-09 06:11] LABS: Anion Gap 14 mmol/L (10-20); BUN (Urea Nitrogen) 12 mg/dL (8.4-25.7); CK (CPK) 1001 U/L (30-200); Calc. Creatinine Clearance 0 mL/min (70-130); Calcium 8.3 mg/dL (7.8-10.44); Carbon Dioxide 22 mmol/L (23-31); Chloride 103 mmol/L (98-107); Glucose 93 mg/dL (83-110); Potassium 3.5 mmol/L (3.5-5.1); Sodium 135 mmol/L (136-145)
== END 2020-12-09 05:52 | disposition home or self-care (01) ==
LOC: BURMANOR 05:51
PROVIDERS: ATTEND Family Medicine
DX: E78.5 Hyperlipidemia, unspecified (principal); I10 Essential (primary) hypertension; R55 Syncope and collapse; M62.82 Rhabdomyolysis
CPT/HCPCS: 80048; 82550

== ENCOUNTER 2021-01-30 11:06 | Emergency (ER) | payer MEDICARE ==
[2021-01-30 13:02] LABS: #Eosinphils 0.1 thou/uL (0.0-0.7); #Lymphocytes 0.7 thou/uL (1.20-3.40); #Monocytes 0.6 thou/uL (0.11-0.59); #Neutrophils 5.4 thou/uL (1.40-6.50); %Basophils 0.6 % (0.0-1.0); %Eosinophils 2.1 % (0.0-10.0); %Monocytes 8.4 % (0.0-10.0); %Neutrophils 78.8 % (42.0-75.0); Hemoglobin 14.6 g/dL (14.0-18.0); Mean Corpuscular HGB CONC 33.8 g/dL (32.0-36.0); Mean Corpuscular Hemoglobin 29.5 pg (27.0-31.0); Mean Corpuscular Volume 87.3 fL (78.0-98.0); Mean Platelet Volume 7.4 fL (7.4-10.4); Platelet Count 203 thou/uL (130-400); RBC Distribution Width 12.5 % (11.5-14.5); Red Blood Cell (RBC) Count 4.95 mill/uL (4.70-6.10); White Blood Cell (WBC) Count 6.9 thou/uL (4.8-10.8)
[2021-01-30 13:15] LABS: ALT (SGPT) 19 U/L (8-55); AST (SGOT) 21 U/L (5-34); Albumin 4.3 g/dL (3.4-4.8); Alkaline Phosphatase 89 U/L (40-110); Anion Gap 17 mmol/L (10-20); BUN (Urea Nitrogen) 13 mg/dL (8.4-25.7); Bilirubin, Total 1.3 mg/dL (0.2-1.2); Calc. Creatinine Clearance 0 mL/min (70-130); Calcium 10.4 mg/dL (7.8-10.44); Carbon Dioxide 22 mmol/L (23-31); Chloride 104 mmol/L (98-107); Globulin 3.7 g/dL (2.4-3.5); Glucose 115 mg/dL (83-110); Lipase 18 U/L (8-78); Potassium 4.1 mmol/L (3.5-5.1); Sodium 139 mmol/L (136-145)
[2021-01-30 13:54] LABS: Bilirubin Negative (Negative); Blood, Urine Trace (Negative); Clarity Clear (Clear); Glucose, Urine (Dipstick) Negative (Negative); Ketone, Urine 80 mg/dL (Negative); Leukocyte Negative (Negative); Nitrite Negative (Negative); Protein, Urine (Dipstick) Negative (Neg-Trace); Specific Gravity, Urine 1.015 (1.005-1.030)
[2021-01-30 14:10] LABS: RBC/HPF 0-3 HPF (0-3); Squamous Epithelial 0-3 HPF (0-3); WBC/HPF None Seen HPF (0-3)
[2021-01-30 14:11] LABS: Bacteria/HPF Rare-Few HPF (None Seen)
[2021-01-30] MEDS ORDERED: Acetaminophen 325 MG TAB PO SCH (18:00)
== END 2021-01-30 14:45 | disposition swing bed (61) ==
LOC: BURERS 11:06
DX: R53.1 Weakness (principal); B02.29 Other postherpetic nervous system involvement; I25.10 Atherosclerotic heart disease of native coronary artery without angina pectoris; I10 Essential (primary) hypertension; Z79.899 Other long term (current) drug therapy; Z79.82 Long term (current) use of aspirin
CPT/HCPCS: 36415; 71046; 80053; 81003; 81015; 83605; 83690; 84443; 84484; 85025; 93005